=== PATIENT | male | born 1975 | race Hispanic/Latino ===

== ENCOUNTER 2016-10-01 13:23 | Outpatient (CLI) | payer OTHER ==
--- NOTE | 2016-10-01 16:55 | RAD ---
RADIOGRAPH CHEST 2 VIEWS: 10/01/16 HISTORY: 41-year-old male with cough and chest congestion for three weeks. FINDINGS: There is no air space density, pulmonary edema, pleural effusion, pneumothorax, or cardiomegaly. IMPRESSION: No acute cardiopulmonary findings. jn [] POS: [facility]
== END 2016-10-01 13:24 | disposition home or self-care (01) ==
LOC: NAV RAD 13:23
PROVIDERS: ATTEND Internal Medicine
DX: J98.01 Acute bronchospasm (principal); R06.02 Shortness of breath
CPT/HCPCS: 71020